=== PATIENT | female | born 1985 | race Caucasian/White ===

== ENCOUNTER 2017-05-01 16:37 | Emergency (ER) | payer OTHER ==
[~2017-05-01] VITALS: Ht 167.6 cm; Wt 75.0 kg
[2017-05-01 17:31] VITALS: BP 125/95
[2017-05-01] MEDS ORDERED: ACETAMINOPHEN 500 MG TABLET PO ONE (18:00)
[2017-05-01 18:33] LABS: HCG,QUAL RESULT NEGATIVE (NEGATIVE)
[2017-05-01 18:34] LABS: APPEARANCE,URINE CLOUDY (CLEAR); BILIRUBIN,URINE NEGATIVE (NEGATIVE); GLUCOSE, URINE (UA) NEGATIVE (NEGATIVE); KETONES,URINE NEGATIVE (NEGATIVE); LEUKOCYTE ESTERASE ,URINE NEGATIVE (NEGATIVE); NITRATE,URINE NEGATIVE (NEGATIVE); OCCULT BLOOD,URINE NEGATIVE (NEGATIVE); PH,URINE 5.5 (5.0-8.0); PROTEIN,URINE SEE CONFIRM (NEGATIVE); UROBILINOGEN,URINE 0.2 mg/dL (<=1.0)
[2017-05-01 18:55] LABS: SULFOSALICYLIC ACID,URINE 2+ (Negative)
[2017-05-01 18:57] LABS: BACTERIA,URINE Few /HPF (None Seen); HYALINE CASTS, URINE 0-2 /LPF (None Seen); MUCUS,URINE Moderate LPF (None Seen); RBC,URINE 0-2 /HPF (0-2); SQUAMOUS EPITHELIAL CELL,UR Many /LPF (None Seen)
== END 2017-05-01 21:43 | disposition home or self-care (01) ==
LOC: EMS 16:37
DX: S00.03XA Contusion of scalp, initial encounter (principal); S80.12XA Contusion of left lower leg, initial encounter; F41.9 Anxiety disorder, unspecified; Y04.2XXA Assault by strike against or bumped into by another person, initial encounter
CPT/HCPCS: 99284

== ENCOUNTER 2018-08-22 17:40 | Observation (INO) | payer OTHER ==
[~2018-08-22] VITALS: Ht 165.1 cm; Wt 90.3 kg
[2018-08-22] MEDS ORDERED: RINGERS SOLUTION,LACTATED 1,000 ML IV SCH (20:15)
[2018-08-22 22:44] VITALS: BP 125/76
[2018-08-22] MEDS ORDERED: METOCLOPRAMIDE HCL 5 MG/ML 2 ML VIAL IVP ONE (23:15)
[2018-08-22] MEDS ORDERED: ACETAMINOPHEN 325 MG TABLET PO ONE (23:15)
[2018-08-24 00:09] LABS: GLUCOMETER DEV NAME(LOC) 4S.; GLUCOSE,POINT OF CARE 92 MG/DL (70-110)
== END 2018-08-22 23:57 | disposition home or self-care (01) ==
LOC: 4S 17:40
PROVIDERS: ADMIT Obstetrics & Gynecology; ATTEND Obstetrics & Gynecology
DX: O21.2 Late vomiting of pregnancy (principal); O26.893 Other specified pregnancy related conditions, third trimester; N89.8 Other specified noninflammatory disorders of vagina; Z3A.36 36 weeks gestation of pregnancy
CPT/HCPCS: 36415; 76805; 80307 ×8; 81002; 82962; 89060; 96360; 96361; G0378; J7120

== ENCOUNTER 2018-08-31 12:45 | Observation (INO) | payer OTHER ==
[~2018-08-31] VITALS: Ht 157.5 cm; Wt 92.5 kg
[2018-08-31] MEDS ORDERED: PREN1TAB80 PO (13:29)
[2018-08-31 13:31] VITALS: BP 113/66
[2018-08-31] MEDS ORDERED: RINGERS SOLUTION,LACTATED 1,000 ML IV ONE (14:33)
[2018-08-31 16:03] LABS: AMPHET/METH SCREEN,URINE NEGATIVE (NEGATIVE); BARBITURATE SCREEN, URINE NEGATIVE (NEGATIVE); BENZODIAZEPINES SCREEN,URINE NEGATIVE (NEGATIVE); CANNABINOID SCREEN,URINE NEGATIVE (NEGATIVE); COCAINE SCREEN,URINE NEGATIVE (NEGATIVE); METHADONE SCREEN, URINE NEGATIVE (NEGATIVE); OPIATE SCREEN,URINE NEGATIVE (NEGATIVE); PHENCYCLIDINE SCREEN,URINE NEGATIVE (NEGATIVE)
[2018-08-31 21:03] LABS: RUBELLA SCREEN (IGG) IMMUNE (IMMUNE)
== END 2018-08-31 16:10 | disposition home or self-care (01) ==
LOC: 4S 12:45
PROVIDERS: ADMIT Obstetrics & Gynecology; ATTEND Obstetrics & Gynecology
DX: O26.893 Other specified pregnancy related conditions, third trimester (principal); R10.9 Unspecified abdominal pain; Z3A.38 38 weeks gestation of pregnancy
CPT/HCPCS: 36415; 80307; 81002; 86592; 86762; 86900; 86901; 87081; 87340; 89060; G0378; J7120

== ENCOUNTER 2018-09-06 01:48 | Observation (INO) | payer OTHER ==
[~2018-09-06] VITALS: Ht 165.1 cm; Wt 93.9 kg
[~2018-09-06 01:48] MED LIST: PREN1TAB80 PO
[2018-09-06 05:44] VITALS: BP 126/72
== END 2018-09-06 04:55 | disposition left against medical advice (07) ==
LOC: 4S 01:48
PROVIDERS: ADMIT Obstetrics & Gynecology; ATTEND Obstetrics & Gynecology
DX: O62.9 Abnormality of forces of labor, unspecified (principal); O26.893 Other specified pregnancy related conditions, third trimester; N89.8 Other specified noninflammatory disorders of vagina; Z3A.38 38 weeks gestation of pregnancy
CPT/HCPCS: 36415; 80307 ×8; 89060; G0378